=== PATIENT | male | born 1960 | race African-American/Black ===

== ENCOUNTER 2017-05-17 11:46 | Observation (INO) | payer MEDICAID, OTHER ==
--- NOTE | 2017-05-17 13:33 | ER Document Report ---
ED Medical Screen (RME) - General Chief Complaint: Chest Pain Stated Complaint: CHEST PAIN,SHORTNESS OF BREATH Time Seen by Provider: 05/17/17 13:31 Mode of Arrival: Ambulatory Information source: Patient Notes: Patient reports chest pain and palpitations with shortness of breath for 3 days. States she has a history of atrial fibrillation with an abnormal stress test in the past. However he has never had a heart catheterization. TRAVEL OUTSIDE OF THE [place] IN LAST 30 DAYS: No - Related Data Allergies/Adverse Reactions: No Known Allergies Allergy (Verified 05/17/17 13:20) Past Medical History - Social History Chew tobacco use (# tins/day): No Frequency of alcohol use: None Drug Abuse: None - Past Medical History Cardiac Medical History: Reports: Hx Atrial Fibrillation Renal/ Medical History: Denies: Hx Peritoneal Dialysis Physical Exam - Vital signs Vitals: Temp Pulse Resp BP Pulse Ox 97.4 F 102 H 16 160/108 H 97 05/17/17 11:56 05/17/17 11:56 05/17/17 11:56 05/17/17 11:56 05/17/17 11:56 Course - Vital Signs Vital signs: Temp Pulse Resp BP Pulse Ox 97.4 F 102 H 16 160/108 H 97 05/17/17 11:56 05/17/17 11:56 05/17/17 11:56 05/17/17 11:56 05/17/17 11:56
[2017-05-17 14:42] LABS: ABSOLUTE MONOCYTES (AUTO) 0.5 10^3/uL (0.1-1.4); BASOPHILS % (AUTO) 0.1 % (0-2); EOSINOPHILS % (AUTO) 0.3 % (0-6); HEMATOCRIT 54.1 % (37.9-51.0); HEMOGLOBIN 18.7 g/dL (13.5-17.0); LYMPHOCYTES % (AUTO) 18.8 % (13-45); MEAN CORPUSCULAR HEMOGLOBIN 31.9 pg (27.0-33.4); MEAN CORPUSCULAR HGB CONC 34.5 g/dL (32.0-36.0); MEAN CORPUSCULAR VOLUME 92 fl (80-97); MONOCYTES % (AUTO) 4.6 % (3-13); PLATELET COUNT 208 10^3/uL (150-450); RED BLOOD COUNT 5.86 10^6/uL (4.35-5.55); RED CELL DISTRIBUTION WIDTH 13.9 % (11.5-14.0); SEGMENTED NEUTROPHILS % (AUTO) 76.2 % (42-78); TOTAL CELLS COUNTED % (AUTO) 100 %; WHITE BLOOD COUNT 10.5 10^3/uL (4.0-10.5)
--- NOTE | 2017-05-17 14:57 | RADIOLOGY REPORT (SQ) ---
EXAM DESCRIPTION: CHEST PA/LAT COMPLETED DATE/TIME: 05/17/2017 2:35 pm REASON FOR STUDY: cough COMPARISON: None. EXAM PARAMETERS: NUMBER OF VIEWS: two views TECHNIQUE: Digital Frontal and Lateral radiographic views of the chest acquired. RADIATION DOSE: NA LIMITATIONS: none FINDINGS: LUNGS AND PLEURA: No opacities, masses or pneumothorax. No pleural effusion. MEDIASTINUM AND HILAR STRUCTURES: No masses or contour abnormalities. HEART AND VASCULAR STRUCTURES: Heart normal size. No evidence for failure. BONES: No acute findings. HARDWARE: None in the chest. OTHER: No other significant finding. IMPRESSION: NO SIGNIFICANT RADIOGRAPHIC FINDING IN THE CHEST. TECHNICAL DOCUMENTATION: JOB ID: [id number] [employer]- All Rights Reserved
[2017-05-17 15:09] LABS: ALANINE AMINOTRANSFERASE 43 U/L (21-72); ALBUMIN 4.9 g/dL (3.5-5.0); ALKALINE PHOSPHATASE 64 U/L (38-126); ANION GAP 11 (5-19); ASPARTATE AMINO TRANSFERASE 29 U/L (17-59); BILIRUBIN,DIRECT 0.2 mg/dL (0.0-0.4); BILIRUBIN,TOTAL 0.6 mg/dL (0.2-1.3); BLOOD UREA NITROGEN 13 mg/dL (7-20); CALCIUM 10.4 mg/dL (8.4-10.2); CARBON DIOXIDE 30 mmol/L (22-30); CHLORIDE 100 mmol/L (98-107); CREATINE KINASE 232 U/L (55-170); GLUCOSE 99 mg/dL (75-110); POTASSIUM 4.3 mmol/L (3.6-5.0); TOTAL PROTEIN 7.7 g/dL (6.3-8.2)
[2017-05-17 15:21] LABS: CREATINE KINASE MB 1.93 ng/mL (<4.55); TROPONIN I < 0.012 ng/mL
--- NOTE | 2017-05-17 15:42 | ER Document Report ---
ED General - General Chief Complaint: Chest Pain Stated Complaint: CHEST PAIN,SHORTNESS OF BREATH Time Seen by Provider: 05/17/17 13:31 Mode of Arrival: Ambulatory Information source: Patient Notes: 56 yr old male presents with complaints of 4 day duration of chest pain, tightness, sob and neck pressure. pt admits to loose bm, denies any fevers, pt had recent travel 3 weeks ago from [place] TRAVEL OUTSIDE OF THE [place] IN LAST 30 DAYS: No - HPI Onset: Last week Onset/Duration: Persistent Quality of pain: Achy, Pressure Severity: Mild Pain Level: 1 Associated symptoms: Chest pain, Shortness of breath Exacerbated by: Denies Relieved by: Denies Similar symptoms previously: No Recently seen / treated by doctor: No - Related Data Allergies/Adverse Reactions: No Known Allergies Allergy (Verified 05/17/17 13:20) Past Medical History - General Information source: Patient - Social History Smoking Status: Unknown if Ever Smoked Cigarette use (# per day): No Chew tobacco use (# tins/day): No Smoking Education Provided: No Frequency of alcohol use: None Drug Abuse: None Family History: Reviewed & Not Pertinent Patient has suicidal ideation: No Patient has homicidal ideation: No - Past Medical History Cardiac Medical History: Reports: Hx Atrial Fibrillation Renal/ Medical History: Denies: Hx Peritoneal Dialysis Review of Systems - Review of Systems Notes: REVIEW OF SYSTEMS: CONSTITUTIONAL : Denies fever, chills, or sweats. Denies recent illness. EENT: Denies eye, ear, throat, or mouth pain or symptoms. Denies nasal or sinus congestion or discharge. Denies throat, tongue, or mouth swelling or difficulty swallowing. CARDIOVASCULAR: Admits to chest pain RESPIRATORY: Admits shortness of breath GASTROINTESTINAL: Denies abdominal pain or distention. Denies nausea, vomiting , or diarrhea. Denies blood in vomitus, stools, or per rectum. Denies black, tarry stools. Denies constipation. GENITOURINARY: Denies difficulty urinating, painful urination, burning, frequency, blood in urine, or discharge. MUSCULOSKELETAL: Denies back or neck pain or stiffness. Denies joint pain or swelling. SKIN: Denies rash, lesions or sores. HEMATOLOGIC : Denies easy bruising or bleeding. LYMPHATIC: Denies swollen, enlarged glands. NEUROLOGICAL: Denies confusion or altered mental status. Denies passing out or loss of consciousness. Denies dizziness or lightheadedness. Denies headache. Denies weakness or paralysis or loss of use of either side. Denies problems with gait or speech. Denies sensory loss, numbness, or tingling. Denies seizures. PSYCHIATRIC: Denies anxiety or stress. Denies depression, suicidal ideation, or homicidal ideation. ALL OTHER SYSTEMS REVIEWED AND NEGATIVE. Dictation was performed using [employer] voice recognition software PHYSICAL EXAMINATION: GENERAL: Well-appearing, well-nourished and in no acute distress. HEAD: Atraumatic, normocephalic. EYES: Pupils equal round and reactive to light, extraocular movements intact, sclera anicteric, conjunctiva are normal. ENT: Nares patent, oropharynx clear without exudates. Moist mucous membranes. NECK: Normal range of motion, supple without lymphadenopathy LUNGS: Breath sounds clear to auscultation bilaterally and equal. No wheezes rales or rhonchi. HEART: Regular rate and rhythm without murmurs ABDOMEN: Soft, nontender, nondistended abdomen. No guarding, no rebound. No masses appreciated. Musculoskeletal: Normal range of motion, no pitting or edema. No cyanosis. NEUROLOGICAL: Cranial nerves grossly intact. Normal speech, normal gait. Normal sensory, motor exams PSYCH: Normal mood, normal affect. SKIN: Warm, Dry, normal turgor, no rashes or lesions noted. Physical Exam - Vital signs Vitals: Temp Pulse Resp BP Pulse Ox 97.4 F 102 H 16 160/108 H 97 05/17/17 11:56 05/17/17 11:56 05/17/17 11:56 05/17/17 11:56 05/17/17 11:56 Course - Re-evaluation Re-evalutation: 05/17/17 15:42 Given patient's presentation I believe an ACS rule out is appropriate, a CTA has been ordered - Vital Signs Vital signs: Temp Pulse Resp BP Pulse Ox 97.4 F 102 H 19 160/108 H 97 05/17/17 11:56 05/17/17 11:56 05/17/17 16:29 05/17/17 11:56 05/17/17 16:29 - Laboratory Result Diagrams: 05/17/17 14:30 05/17/17 14:30 Laboratory results interpreted by me: 05/17/17 05/17/17 14:30 14:30 RBC 5.86 H Hgb 18.7 H Hct 54.1 H Calcium 10.4 H Creatine Kinase 232 H Discharge - Discharge Clinical Impression: Anxiety Chest pain Qualifiers: Chest pain type: unspecified Qualified Code(s): R07.9 - Chest pain, unspecified Condition: Stable Disposition: ADMITTED OBSERVATION Admitting Provider: Hospitalist Unit Admitted: Telemetry
--- NOTE | 2017-05-17 16:25 | RADIOLOGY REPORT (SQ) ---
EXAM DESCRIPTION: CTA CHEST COMPLETED DATE/TIME: 05/17/2017 4:06 pm REASON FOR STUDY: chest pain sob COMPARISON: Chest film 05/17/2017 TECHNIQUE: CT scan of the chest performed using helical scanning technique with dynamic intravenous contrast injection. Images reviewed with lung, soft tissue and bone windows. Reconstructed coronal and sagittal MPR images reviewed. Additional 3 dimensional post-processing performed to develop Maximal Intensity Projection images (MO P). All images stored on PACS. All CT scanners at this facility use dose modulation, iterative reconstruction, and/or weight based d osing when appropriate to reduce radiation dose to as low as reasonably achievable (ALARA). [facility]: Dose Right [facility]: CareDose [facility]: Dose Right [facility]: Teradose 4D [facility]: Polybiotics CONTRAST TYPE AND DOSE: contrast/concentration: Isovue 370.00 mg/ml; Total Contrast Delivered: 75.0 ml; Total Saline Delivered: 70.0 ml Contrast bolus adequate for pulmonary arteries and aorta. RENAL FUNCTION: Creatinine 0.98 RADIATION DOSE: CT Rad equipment meets quality standard of care and radiation dose reduction techniq ues were employed. CTDIvol: 9.9 - 19.2 mGy. DLP: 727 mGy-cm. . LIMITATIONS: None. FINDINGS: LUNGS AND PLEURA: No masses, infiltrates, pneumothorax. No pleural effusions, calcificati ons. AORTA AND GREAT VESSELS: No aneurysm. Contrast bolus not optimized for the aorta. HEART: No pericardial effusion. No significant coronary artery calcifications. PULMONARY ARTERIES: No emboli visualized in the main pulmonary arteries or the segmental branches. HILAR AND MEDIASTINAL STRUCTURES: No identified masses or abnormal nodes. HARDWARE: None in the chest. UPPER ABDOMEN: 5 mm left midpole intrarenal nonobstructive stone. THYROID AND OTHER SOFT TISSUES: No masses. No adenopathy. BONES: No acute or significant finding. 3D MIPS: Confirm above findings. OTHER: No other significant finding. IMPRESSION: NORMAL CTA OF THE CHEST. NO PULMONARY EMBOLI. NO THORACIC AORTIC DISSECTION COMMENT: Quality ID # [id number]: Final reports with documentation of one or more dose reduction techniques (e.g., Automated exposure control, adjustment of the mA and/or kV according to patient size, use of iterative reconstruction technique) TECHNICAL DOCUMENTATION: JOB ID: [id number]- All Rights Reserved
[2017-05-17] MEDS ORDERED: LORAZEPAM INJ 2 MG/1 ML VIAL IV ONE (16:45)
[2017-05-17] MEDS ORDERED: ONDANSETRON HCL INJ/PF 4 MG/2 ML SDV IV PRN (17:45)
[2017-05-17] MEDS ORDERED: ONDANSETRON 4 MG TAB.RAPDIS PO PRN (17:45)
[2017-05-17] MEDS ORDERED: ACETAMINOPHEN 325 MG TABLET PO PRN (17:45)
[2017-05-17] MEDS ORDERED: GLUCAGON,HUMAN RECOMB 1 MG INJ SUBCUT PRN (17:45)
[2017-05-17] MEDS ORDERED: DEXTROSE 40% GEL 15 GM TUBE PO PRN ×2 (17:45)
[2017-05-17] MEDS ORDERED: DEXTROSE 50%-WATER 25 GM/50 ML DISP.SYRIN IV PRN ×2 (17:45)
[2017-05-17] MEDS ORDERED: LEVALBUTEROL HCL NEB 1.25 MG/3 ML AMPUL NEB PRN (17:45)
[2017-05-17] MEDS ORDERED: ACETAMINOPHEN 650 MG SUPP.RECT PR PRN (17:45)
[2017-05-17] MEDS ORDERED: ASPIRIN 325 MG TABLET, ENT COATED PO SCH (18:00)
[2017-05-17] MEDS ORDERED: ASPIRIN 325 MG TABLET ONE (18:20)
[2017-05-17] MEDS ORDERED: NITROGLYCERIN 0.4 MG/TAB 25 TAB/BOTTLE SL PRN (18:21)
--- NOTE | 2017-05-17 18:22 | PDOC H&P ---
History of Present Illness Admission Date/PCP: 05/17/17 17:05 No local PCP History of Present Illness: CURRY TOLBERT is a 56 year old male past medical history of hypertension hyperlipidemia, PTSD and atrial fibrillation. Patient medications include Aspirin 81 mg daily Toprol-XL 50 mg daily Simvastatin does not remember the dose He says he is also on Coreg, he does not remember the dose His primary care physician is in [place]. He spends part of the year at [facility]. Has never had a stroke or TIA denies history of CHF or diabetes. He says for the past 2 days he has been having some epigastric discomfort as well as chest pressure radiating to his neck. These episodes have been accompanied by sweatiness nausea palpitations and lightheadedness. He does not smoke. He denies illicit drug use. He denies alcohol use. His last stress test was 6 years ago and it was normal. EKG showed sinus rhythm with no acute ST or T-wave changes. Chest x-ray showed no significant abnormalities CT angiogram did not show any pulmonary embolus. Currently chest pain-free. Cardiac enzymes were negative. Past Medical History Cardiac Medical History: Reports: Atrial Fibrillation Social History Information Source: Patient Smoking Status: Never Smoker Frequency of Alcohol Use: None Hx Recreational Drug Use: No - Advance Directive Resuscitation Status: Full Code Family History Family History: DM Parental Family History Reviewed: Yes Children Family History Reviewed: Yes Sibling(s) Family History Reviewed.: Yes Medication/Allergy Home Medications: Hydrochlorothiazide 25 mg PO DAILY 05/17/17 Metoprolol Succinate 50 mg PO DAILY 05/17/17 Simvastatin 50 mg PO DAILY 05/17/17 Allergies/Adverse Reactions: No Known Allergies Allergy (Verified 05/17/17 13:20) Review of Systems Constitutional: ABSENT: fever(s), night sweats Eyes: ABSENT: visual disturbances Ears: ABSENT: hearing changes Nose, Mouth, and Throat: ABSENT: sore throat Cardiovascular: PRESENT: chest pain, palpitations. ABSENT: edema, orthropnea Respiratory: ABSENT: cough, dyspnea Gastrointestinal: ABSENT: diarrhea, dysphagia, heartburn, hematemesis, melena Genitourinary: ABSENT: dysuria Musculoskeletal: ABSENT: deformity Neurological: ABSENT: focal weakness, memory loss, syncope Psychiatric: PRESENT: anxiety. ABSENT: depression, suicidal ideation Physical Exam Vital Signs: Temp Pulse Resp BP Pulse Ox 97.4 F 102 H 19 160/108 H 97 05/17/17 11:56 05/17/17 11:56 05/17/17 16:29 05/17/17 11:56 05/17/17 16:29 Additional comments: Middle aged gentleman sitting in bed not in acute distress HEENT: Pupils equal reactive light moist microfungi mucosa with no lesions Neck is supple no JVD no masses trachea is midline Cardiac: S1-S2 regular no murmurs heard no peripheral edema no cyanosis Abdomen: Soft, no focal tenderness normal bowel sounds Respiratory: Lungs are clear to auscultation bilaterally normal respiratory effort Skin: Warm and dry Results Impressions: Chest X-Ray 05/17/17 13:32 IMPRESSION: NO SIGNIFICANT RADIOGRAPHIC FINDING IN THE CHEST. Chest/Abdomen CTA 05/17/17 15:38 IMPRESSION: NORMAL CTA OF THE CHEST. NO PULMONARY EMBOLI. NO THORACIC AORTIC DISSECTION Assessment & Plan - Diagnosis (1) Hypertension Is this a current diagnosis for this admission?: Yes Plan: Continue outpatient medications. (2) History of atrial fibrillation Is this a current diagnosis for this admission?: No (3) Chest pain Qualifiers: Chest pain type: unspecified Qualified Code(s): R07.9 - Chest pain, unspecified Is this a current diagnosis for this admission?: Yes Plan: Check hemoglobin A1c, fasting lipid panel and cardiac enzymes. Stress test in the morning. (4) Anxiety Is this a current diagnosis for this admission?: Yes Plan: Xanax as needed - Time Time Spent: 50 to 70 Minutes
[2017-05-17] MEDS ORDERED: SIMVASTATIN 40 MG TABLET PO SCH (22:00)
[2017-05-17] MEDS: ALPRAZOLAM 0.25 MG TABLET PO PRN (22:42)
--- NOTE | 2017-05-17 23:33 | EKG REPORT ---
SEVERITY:- ABNORMAL ECG - SINUS RHYTHM LEFT AXIS DEVIATION CONSIDER ANTEROSEPTAL INFARCT BORDERLINE PROLONGED QT INTERVAL : Confirmed by: Ariel Simmons 17-May-2017 23:32:59
[2017-05-18 05:25] LABS: ANION GAP 10 (5-19); BLOOD UREA NITROGEN 14 mg/dL (7-20); CALCIUM 9.6 mg/dL (8.4-10.2); CARBON DIOXIDE 26 mmol/L (22-30); CHLORIDE 104 mmol/L (98-107); CHOLESTEROL 195.69 mg/dL (0-200); CREATINE KINASE 160 U/L (55-170); GLUCOSE 92 mg/dL (75-110); MAGNESIUM 2.1 mg/dL (1.6-2.3); PHOSPHORUS 3.9 mg/dL (2.5-4.5); POTASSIUM 3.7 mmol/L (3.6-5.0); SODIUM 139.5 mmol/L (137-145); TRIGLYCERIDES 142 mg/dL (<150)
[2017-05-18 05:35] LABS: DIRECT LDL 141 mg/dL (<100)
[2017-05-18] MEDS ORDERED: LANSOPRAZOLE 30 MG TAB.RAP.DR PO SCH (06:00)
[2017-05-18] MEDS: ALPRAZOLAM 0.25 MG TABLET PO PRN ×2 (06:24→11:31)
[2017-05-18] MEDS ORDERED: HYDRALAZINE HCL 25 MG TABLET PO ONE (09:24)
[2017-05-18] MEDS ORDERED: METOPROLOL SUCCINATE 50 MG TAB.SR.24H PO SCH (10:00)
[2017-05-18] MEDS ORDERED: HYDROCHLOROTHIAZIDE 25 MG TABLET PO SCH (10:00)
[2017-05-18] MEDS ORDERED: AMINOPHYLLINE INJ/PF 250 MG/10 ML SDV IV ONE (12:00)
[2017-05-18] MEDS ORDERED: REGADENOSON INJ 0.4 MG/5 ML DISP.SYRIN IV ONE (12:00)
--- NOTE | 2017-05-18 13:25 | DRAGON STRESS TEST REPORT ---
INTRAVENOUS LEXISCAN CARDIOLITE STRESS TEST USING SINGLE PHOTON EMMISION COMPUTERIZED TOMOGRAPHIC. DATE OF PROCEDURE: May 18, 2017, INDICATION : Chest pain CARDIAC RISK FACTORS: Diabetes, hypertension, dyslipidemia RESTING EKG: Sinus rhythm, no baseline ST-T wave changes noted STRESS EKG: No significant changes noted with LexiScan bolus REASON FOR TERMINATION: Protocol. PROCEDURE REPORT: Baseline heart rate 86 beats per minute with blood pressure of 144/100. Patient had no significant complaints. Heart rate at 2 minutes post bolus 113 with a blood pressure of 162/106. 3 minutes post bolus heart rate 102 with blood pressure of 157/108. No significant EKG changes were noted. Patient had no significant complaints during the procedure or postprocedure. Patient injected with Aminophyllin 75 mg at 3 minutes or later after Lexiscan bolus. CONCLUSIONS: Normal EKG and hemodynamic response to IV LexiScan. NUCLEAR DATA: At rest the patient was given 14.31 millicuries of technetium 99 sestamibi injected intravenously. As per protocol rest gated SPECT images were obtained. On day of stress test, the patient was given intravenous LexiScan at a dose of 0.4 mg in 5 mL intravenously, followed by flush with normal saline. Subsequently the stress dose of 39.3 millicuries of technetium 99 sestamibi was injected intravenously. As per protocol stress gated images were obtained. NUCLEAR INTERPRETATION: Both raw and processed data were used for interpretation. Visual, qualitative, computer-generated quantitative data was used. There was good myocardial uptake of technetium compound. Motion artifact and soft tissue attenuations were noted. Increased visceral uptake was noted. No definitive areas of transient perfusion defect noted, No definitive areas of fixed perfusion defect or scars noted. EKG gated imaging showed LV EF at 57 %, rest and stress gated EF similar visually. T. I D. ratio was 1.15. Lung heart ratio noted to be within normal limits 0.29. No significant extracardiac and abnormal radiotracer activities were noted. RV free wall uptake was noted to be WNL. IMPRESSION: Also refer to comments under nuclear interpretation. Also test results needs to be interpreted in the context of pretest probability. 1. No definitive areas of transient perfusion defect noted. 2. There is no definitive scintigraphic evidence of myocardial infarction/scar. 3. EKG gated imaging shows left ventricular ejection fraction of approx. 57 %. 4. Clinical correlation requested as occasionally single vessel disease or balanced ischemia could be missed. In approximately 10% of the cases Lexiscan may not cause adequate vasodilatory stress. MTDD
[2017-05-18 15:16] VITALS: BP 149/107
--- NOTE | 2017-05-18 17:28 | PDOC DISCHARGE SUMMARY ---
General - Admit/Disc Date/PCP Admission Date/Primary Care Provider: 05/17/17 17:05 Discharge Date: 05/18/17 - Discharge Diagnosis (1) Musculoskeletal chest pain Is this a current diagnosis for this admission?: Yes Summary: Supportive care. No evidence of cardiac chest pain. (2) Chest pain Is this a current diagnosis for this admission?: Yes Summary: Ruled out: No significant chest pain. (3) Anxiety Is this a current diagnosis for this admission?: Yes Summary: Pt will continue home medication. (4) Hypertension Is this a current diagnosis for this admission?: Yes Summary: Pt states that he has not been using his HCTZ for several days. Pt was told to restart home medications and was written for Lisinopril 10 mg PO Qdaily. - Additional Information Resuscitation Status: Full Code Discharge Diet: Cardiac Discharge Activity: Activity As Tolerated Prescriptions: Lisinopril 10 mg PO DAILY #30 tablet Home Medications: Aspirin [Aspirin EC] 81 mg PO DAILY 05/17/17 Hydrochlorothiazide 25 mg PO DAILY 05/17/17 Metoprolol Succinate 50 mg PO DAILY 05/17/17 Simvastatin 40 mg PO QHS 05/17/17 Testosterone Cypionate [Depo-Testosterone] 200 mg IM [id number] MDD ON Wednesdays05/17/17 Lisinopril 10 mg PO DAILY #30 tablet 05/18/17 History of Present Illness Patient complains of: Chest pressure History of Present Illness: CURRY TOLBERT is a 56 year old male presents with complaint of chest pain. Hospital Course Hospital Course: Patient is a 56-year-old gentleman that was admitted to our facility after complaint of chest pain. Patient had a stress test and 2D echo that demonstrated no evidence of ischemic disease. Patient was noted to have essential hypertension due to patient's noncompliance with blood pressure medications. When patient was asked why he was not taking his medications he reports that the hydrochlorothiazide causes him to urinate too much. Patient states that he has not taken the hydrochlorothiazide for the last 5-10 days. Patient was told to restart his hydrochlorothiazide and also started on lisinopril. Physical Exam Vital Signs: Temp Pulse Resp BP Pulse Ox 98.3 F 102 H 29 H 149/107 H 96 05/18/17 16:34 05/18/17 16:34 05/18/17 16:34 05/18/17 15:00 05/18/17 16:34 General appearance: PRESENT: no acute distress, well-developed, well-nourished Head exam: PRESENT: atraumatic, normocephalic Eye exam: PRESENT: conjunctiva pink, EOMI. ABSENT: scleral icterus Ear exam: PRESENT: normal external ear exam Mouth exam: PRESENT: moist, tongue midline Neck exam: ABSENT: carotid bruit, JVD, lymphadenopathy, thyromegaly Respiratory exam: PRESENT: clear to auscultation raif. ABSENT: rales, rhonchi, wheezes Cardiovascular exam: PRESENT: RRR. ABSENT: diastolic murmur, rubs, systolic murmur Pulses: PRESENT: normal dorsalis pedis pul Vascular exam: PRESENT: normal capillary refill GI/Abdominal exam: PRESENT: normal bowel sounds, soft. ABSENT: distended, guarding, mass, organolmegaly, rebound, tenderness Rectal exam: PRESENT: deferred Extremities exam: PRESENT: full ROM. ABSENT: calf tenderness, clubbing, pedal edema Neurological exam: PRESENT: alert, awake, oriented to person, oriented to place , oriented to time, oriented to situation, CN II-XII grossly intact. ABSENT: motor sensory deficit Psychiatric exam: PRESENT: appropriate affect, normal mood. ABSENT: homicidal ideation, suicidal ideation Skin exam: PRESENT: dry, intact, warm. ABSENT: cyanosis, rash Results Laboratory Results: 05/18/17 03:55 05/18/17 05/18/17 03:55 03:55 Sodium 139.5 Potassium 3.7 Chloride 104 Carbon Dioxide 26 Anion Gap 10 BUN 14 Creatinine 0.97 Est GFR ( Amer) > 60 Est GFR (Non-Af Amer) > 60 Glucose 92 Calcium 9.6 Phosphorus 3.9 Magnesium 2.1 Triglycerides 142 Cholesterol 195.69 LDL Cholesterol Direct 141 H VLDL Cholesterol 28.0 HDL Cholesterol 47 TSH 2.68 05/17/17 05/17/17 05/17/17 18:10 18:10 23:59 Creatine Kinase 217 H 174 H Troponin I < 0.012 05/17/17 05/18/17 05/18/17 23:59 03:55 03:55 Creatine Kinase 160 Troponin I < 0.012 < 0.012 Impressions: Chest X-Ray 05/17/17 13:32 IMPRESSION: NO SIGNIFICANT RADIOGRAPHIC FINDING IN THE CHEST. Chest/Abdomen CTA 05/17/17 15:38 IMPRESSION: NORMAL CTA OF THE CHEST. NO PULMONARY EMBOLI. NO THORACIC AORTIC DISSECTION Plan Time Spent: Less than 30 Minutes
== END 2017-05-18 16:50 | disposition home or self-care (01) ==
LOC: ER 11:46 → EH 17:05 → 4S 05-18 15:49
PROVIDERS: ADMIT Internal Medicine; ATTEND Internal Medicine
DX: R07.89 Other chest pain (principal); F41.9 Anxiety disorder, unspecified; I10 Essential (primary) hypertension; Z91.14 Patient's other noncompliance with medication regimen; E78.5 Hyperlipidemia, unspecified; Z86.79 Personal history of other diseases of the circulatory system; Z79.899 Other long term (current) drug therapy
CPT/HCPCS: 93005; 99285; 96374; 36415; 82553; 82550 ×2; 83735; 84100; 84443; 85025; 80048; 80053; 84484 ×2; 83036; 80061; 93017; 71046; 78452; 71275; 93010; A9500; J2785; J2060; J3490 ×2; J0280; Q9969